=== PATIENT | female | born 1930 | race Caucasian/White ===

== ENCOUNTER 2017-06-15 17:05 | Emergency (ER) | payer MEDICARE ==
[2017-06-15 17:31] VITALS: BP 173/91
--- NOTE | 2017-06-15 17:37 | UC ---
Ear Complaint HPI - HPI Summary HPI Summary: Pt presents with b/l decreased hearing and ear fullness. She says that she has a hx of wax build up in her ears and gets them irrigated frequently. Denies fever, chills, sore throat, or recent illness. - History of Current Complaint Chief Complaint: UCEar Stated Complaint: EARS NEEDS FLUSHING Time Seen by Provider: 06/15/17 17:35 Hx Obtained From: Patient Onset/Duration: Gradual Onset Severity Currently: None Pain Intensity: 0 - Allergies/Home Medications Allergies/Adverse Reactions: Allergies Allergy/AdvReac Type Severity Reaction Status Date / Time captopril AdvReac Coughing Verified 06/15/17 17:23 Home Medications: Home Medications Apixaban* [Eliquis*] 5 mg PO BID 06/15/17 [History Confirmed 06/15/17] Atorvastatin* [Lipitor*] 10 mg PO DAILY 06/15/17 [History Confirmed 06/15/17] Losartan Potassium 100 mg PO DAILY 06/15/17 [History Confirmed 06/15/17] Spironolactone TAB* [Aldactone TAB*] 25 mg PO DAILY 06/15/17 [History Confirmed 06/15/17] amLODIPine TAB* [Norvasc 5 mg TAB*] 5 mg PO DAILY 06/15/17 [History Confirmed ] PMH/Surg Hx/FS Hx/Imm Hx Endocrine History: Dyslipidemia Cardiovascular History: Cardiac Disease, Hypertension, Atrial Fibrillation GI/ History: Gastroesophageal Reflux - Surgical History Surgical History: Yes Surgery Procedure, Year, and Place: appy, masectomy (Right) - Family History Known Family History: Positive: Cardiac Disease, Hypertension - Social History Occupation: Retired Lives: With Family Alcohol Use: None Substance Use Type: None Smoking Status (MU): Never Smoked Tobacco Review of Systems Constitutional: Negative Skin: Negative Eyes: Negative ENT: Ear Ache Respiratory: Negative Cardiovascular: Negative Gastrointestinal: Negative Neurovascular: Negative Musculoskeletal: Negative Neurological: Negative Psychological: Negative All Other Systems Reviewed And Are Negative: Yes Physical Exam - Summary Physical Exam Summary: GENERAL: NAD. WDWN. No pain distress. SKIN: No rashes, sores, ulcers, masses, lesions. HEENT: Head: AT/NC Eyes: EOM intact. Conjunctiva clear without inflammation or discharge. Ears: Hearing grossly normal. TMs occluded by cerumen b/l. Nose: Nasal mucosa pink and moist. NTTP maxillary and frontal sinus. Throat: Posterior oropharynx without exudates, erythema, or tonsillar enlargement. Uvula midline. NECK: Supple. Nontender. No lymphadenopathy. CHEST: CTAB. No r/r/w. No accessory muscle use. Breathing comfortably and in no distress. CV: Pulses intact. Brisk cap refill. NEURO: Alert. CN II-XII grossly intact. PSYCH: Age appropriate behavior. Triage Information Reviewed: Yes Vital Signs: Initial Vital Signs Temp 98.7 F 06/15/17 17:23 Pulse 66 06/15/17 17:23 Resp 20 06/15/17 17:23 BP 173/91 06/15/17 17:23 Pulse Ox 96 06/15/17 17:23 Ear Complaint Course/Dx - Course Course Of Treatment: Ear irrigation was successful. TMs intact and without erythema. Pt tolerated well. - Differential Dx/Diagnosis Provider Diagnoses: Cerumen disimpaction Discharge - Sign-Out/Discharge Documenting (check all that apply): Discharge - Discharge Plan Condition: Stable Disposition: HOME Patient Education Materials: Cerumen Impaction (ED) Referrals: Cj Cook MD [Primary Care Provider] - Additional Instructions: If you develop a fever, shortness of breath, chest pain, new or worsening symptoms - please call your PCP or go to the ED. - Billing Disposition and Condition Condition: STABLE Disposition: HOME
== END 2017-06-15 18:06 | disposition home or self-care (01) ==
LOC: UCCORT 17:05
DX: H61.20 Impacted cerumen, unspecified ear (principal); Z88.8 Allergy status to other drugs, medicaments and biological substances
CPT/HCPCS: 99203; G0463

== ENCOUNTER 2018-03-01 12:17 | Emergency (ER) | payer MEDICARE ==
[2018-03-01 14:22] VITALS: BP 154/71
--- NOTE | 2018-03-01 15:01 | UC ---
Skin Complaint HPI - HPI Summary HPI Summary: Patient has had pain on the right back of her head for the last 2 days it does not change with movement, it is shooting pain that causes occasional pain in the ear. patient is reaching up to scratch the back of head frequently. no fever. no injury - History of Current Complaint Chief Complaint: UCGeneralIllness Time Seen by Provider: 03/01/18 14:32 Stated Complaint: NECK PAIN Hx Obtained From: Patient ?: No Onset/Duration: Sudden Onset, Lasting Days Skin Exposure Onset/Duration: Days Ago Timing: Constant Onset Severity: Severe Current Severity: Severe Pain Intensity: 9 Location: Discrete - behind right ear Character: Redness, Raised Aggravating Factor(s): Nothing Alleviating Factor(s): Nothing Associated Signs & Symptoms: Positive: Rash - Allergy/Home Medications Allergies/Adverse Reactions: Allergies Allergy/AdvReac Type Severity Reaction Status Date / Time captopril AdvReac Coughing Verified 03/01/18 14:08 Home Medications: Home Medications Losartan TAB* [Cozaar TAB*] 100 mg DAILY 03/01/18 [History Confirmed 03/01/18] Metoprolol Tartrate TAB* [Lopressor TAB*] 1 tab BID 03/01/18 [History Confirmed 03/01/18] PMH/Surg Hx/FS Hx/Imm Hx Previously Healthy: Yes - Surgical History Surgical History: Yes Surgery Procedure, Year, and Place: appy, masectomy (Right) - Family History Known Family History: Positive: Cardiac Disease, Hypertension - Social History Alcohol Use: None Substance Use Type: None Smoking Status (MU): Never Smoked Tobacco Review of Systems All Other Systems Reviewed And Are Negative: Yes Constitutional: Positive: Negative Skin: Positive: Rash Eyes: Positive: Negative ENT: Positive: Ear Ache Respiratory: Positive: Negative Cardiovascular: Positive: Negative Gastrointestinal: Positive: Negative Genitourinary: Positive: Negative Motor: Positive: Negative Neurovascular: Positive: Negative Musculoskeletal: Positive: Negative Neurological: Positive: Headache Psychological: Positive: Negative Is Patient Immunocompromised?: No Physical Exam Triage Information Reviewed: Yes Appearance: Ill-Appearing, Pain Distress, Obese Vital Signs: Initial Vital Signs Temp 97.5 F 03/01/18 14:12 Pulse 63 03/01/18 14:12 Resp 18 03/01/18 14:12 BP 154/71 03/01/18 14:12 Pulse Ox 97 03/01/18 14:12 Vital Signs Reviewed: Yes Eye Exam: Normal ENT Exam: Normal ENT: Positive: Pharynx normal, TMs normal - no sign of lesions Dental Exam: Normal Neck exam: Normal Neck: Positive: Supple, Nontender, No Lymphadenopathy Respiratory Exam: Normal Respiratory: Positive: Chest non-tender, Lungs clear, Normal breath sounds Cardiovascular Exam: Normal Cardiovascular: Positive: RRR, No Murmur, Pulses Normal Abdominal Exam: Normal Abdomen Description: Positive: Nontender, No Organomegaly, Soft Bowel Sounds: Positive: Present Musculoskeletal Exam: Normal Musculoskeletal: Positive: Strength Intact, ROM Intact, No Edema, Other: Neurological Exam: Normal Neurological: Positive: Alert Psychological Exam: Normal Skin: Positive: Rashes - red raised areas of erythema up the right side of the head Course/Dx - Course Course Of Treatment: hx obtained, exam performed ,meds reviewed, treaed for shingles - Differential Diagnoses - Skin Complaint Differential Diagnoses: Abscess, Cellulitis, Contact Dermatitis, Urticaria, Varicella Zoster - Diagnoses Provider Diagnosis: Shingles outbreak Discharge - Sign-Out/Discharge Documenting (check all that apply): Patient Departure All imaging exams completed and their final reports reviewed: No Studies - Discharge Plan Condition: Stable Disposition: HOME Prescriptions: Hydrocodone/Acetaminophen [Ernest 5-325 Tablet] 1 each PO Q6H #16 tablet MDD 4 tab ValACYclovir (*) [Valtrex 1 GM(*)] 1 gm PO TID #21 tab Patient Education Materials: Shingles (ED) Referrals: Cj Cook MD [Primary Care Provider] - Additional Instructions: 1. Take the medication as prescribed. 2. Use the pain medication when tylneol and heat are not enough. 3. Follow up if your symtpoms become wrse, you develop sharp ear pain, increased hearing loss or fever. 4. try to keep hands away from area - Billing Disposition and Condition Condition: STABLE Disposition: Home - Attestation Statements Provider Attestation: Per institutional requirements, I have reviewed the chart, however, I was not consulted specifically or made aware of this patient by the midlevel provider. I did not personally evaluate, interact with , or disposition this patient.
== END 2018-03-01 15:06 | disposition home or self-care (01) ==
LOC: UCCORT 12:17
DX: B02.9 Zoster without complications (principal); Z88.8 Allergy status to other drugs, medicaments and biological substances
CPT/HCPCS: 99212; G0463

== ENCOUNTER 2018-08-19 07:21 | Emergency (ER) | payer MEDICARE ==
[2018-08-19 07:46] VITALS: BP 132/51
[2018-08-19] MEDS ORDERED: cefTRIAXone VIAL(*) 1,000 MG VIAL IM ONE (07:52)
[2018-08-19] MEDS ORDERED: Lidocaine 1%** 5 ML VIAL INJ ONE (07:57)
--- NOTE | 2018-08-19 08:13 | UC ---
Skin Complaint HPI - HPI Summary HPI Summary: right arm redness x 1 day woke up this morning with redness of her right arm extending for her shoulder down to her wrist hx of breast cancer with right mastectomy, hx of cellulitis of her right arm , + right arm pain, warm to touch feels weak and feverish - History of Current Complaint Chief Complaint: UCUpperExtremity Time Seen by Provider: 08/19/18 07:48 Stated Complaint: RIGHT ARM SKIN Hx Obtained From: Patient, Family/Industrial Paramedic Onset/Duration: Gradual Onset, Lasting Days - 1, Still Present Timing: Constant Onset Severity: Moderate Current Severity: Severe Pain Intensity: 6 Location: Discrete - right arm Character: Swelling, Pain, Redness, Painful Aggravating Factor(s): Touch Alleviating Factor(s): Nothing Associated Signs & Symptoms: Positive: Weakness, Fever, Chills, Tenderness. Negative: Nausea, Vomiting - Allergy/Home Medications Allergies/Adverse Reactions: Allergies Allergy/AdvReac Type Severity Reaction Status Date / Time captopril AdvReac Coughing Verified 08/19/18 07:35 PMH/Surg Hx/FS Hx/Imm Hx Endocrine History: Diabetes Cardiovascular History: Cardiac Disease, Hypertension, Atrial Fibrillation GI/ History: Gastroesophageal Reflux Neurological History: CVA Cancer History: Breast Cancer - Surgical History Surgical History: Yes Surgery Procedure, Year, and Place: appy, masectomy (Right) - Family History Known Family History: Positive: Cardiac Disease, Hypertension - Social History Alcohol Use: None Substance Use Type: None Smoking Status (MU): Never Smoked Tobacco Review of Systems All Other Systems Reviewed And Are Negative: Yes Constitutional: Positive: Fever, Chills, Fatigue Eyes: Positive: Negative ENT: Positive: Negative Respiratory: Positive: Negative Is Patient Immunocompromised?: No Physical Exam Triage Information Reviewed: Yes Appearance: Well-Appearing, No Pain Distress, Well-Nourished Vital Signs: Initial Vital Signs Temp 99.8 F 08/19/18 07:37 Pulse 91 08/19/18 07:37 Resp 24 08/19/18 07:37 BP 132/51 08/19/18 07:37 Pulse Ox 94 08/19/18 07:37 Vital Signs Reviewed: Yes Eye Exam: Normal Eyes: Positive: Conjunctiva Clear ENT: Positive: Normal ENT inspection, Hearing grossly normal, Pharynx normal Neck: Positive: Supple, Nontender, No Lymphadenopathy Respiratory: Positive: Chest non-tender, Lungs clear, Normal breath sounds Cardiovascular: Positive: RRR, No Murmur, Pulses Normal Skin: Positive: Other - right arm : + cellulitis , erythem extending for axilla to wrist, + tenderness, warm to touch Course/Dx - Diagnoses Provider Diagnosis: Cellulitis of right arm Discharge - Sign-Out/Discharge Documenting (check all that apply): Patient Departure All imaging exams completed and their final reports reviewed: No Studies - Discharge Plan Condition: Stable Disposition: HOME Prescriptions: Cephalexin CAP* [Keflex CAP*] 500 mg PO TID #30 cap Patient Education Materials: Cellulitis (DC) Referrals: Cj Cook MD [Primary Care Provider] - Additional Instructions: please go to the Emergency room if not seeing any improvements in 2 days sooner if getting worse with fever, chills , increase in redness of your arm - Billing Disposition and Condition Condition: STABLE Disposition: Home
== END 2018-08-19 08:37 | disposition home or self-care (01) ==
LOC: UCCORT 07:21
DX: L03.113 Cellulitis of right upper limb (principal); E11.9 Type 2 diabetes mellitus without complications; I10 Essential (primary) hypertension; Z86.73 Personal history of transient ischemic attack (TIA), and cerebral infarction without residual deficits; Z85.3 Personal history of malignant neoplasm of breast
CPT/HCPCS: 99212; G0463; J0696

== ENCOUNTER 2019-03-29 11:45 | Emergency (ER) | payer MEDICARE ==
[2019-03-29] MEDS ORDERED: Albuterol 2.5 MG/3 ML NEB.SOL* (0.083%) INH ONE (12:11)
--- NOTE | 2019-03-29 12:16 | UC ---
Respiratory Complaint HPI - HPI Summary HPI Summary: 6 days of wheezing and productive cough w/ fever, decr. energy. she felt better after using at home neb 2x. of note she did get flu shot this year. no recent travel. denies sick contacts. has had to sleep up right a couple of times. walking makes it worse. - History of Current Complaint Chief Complaint: UCRespiratory Stated Complaint: WHEEZING,CONGESTION,COUGH Time Seen by Provider: 03/29/19 12:10 Hx Obtained From: Patient Onset/Duration: Gradual Onset Pain Intensity: 0 Character: Cough: Productive Aggravating Factors: Recumbent Position Alleviating Factors: Bronchodilator, Upright Position Associated Signs And Symptoms: Positive: Fever, Wheezing, URI, Nasal Congestion. Negative: Dyspnea, Chills, Pleuritic Chest Pain, Hemoptysis, Dizziness, Calf Pain, Calf Swelling, Edema - Allergies/Home Medications Allergies/Adverse Reactions: Allergies Allergy/AdvReac Type Severity Reaction Status Date / Time captopril AdvReac Coughing Verified 03/29/19 12:05 Home Medications: Home Medications Calcium Carbonate [Calcium] 600 mg PO DAILY 03/29/19 [History Confirmed 03/29/19 ] Glucosam/Chondr/Collagn/Hyalur [Glucosamine & Chondroitin Cap] 1 each PO DAILY 03/29/19 [History Confirmed 03/29/19] Multivitamins/Minerals TAB* [Thera M Plus TAB*] 1 tab PO DAILY 03/29/19 [ History Confirmed 03/29/19] PMH/Surg Hx/FS Hx/Imm Hx Previously Healthy: No - chronically ill Cardiovascular History: Cardiac Disease, Hypertension, Congestive Heart Failure , Atrial Fibrillation Other Respiratory History: chronic lung issue but she is unclear of dx; has nebulizer at home. GI/ History: Gastroesophageal Reflux - Surgical History Surgical History: Yes Surgery Procedure, Year, and Place: appy, masectomy (Right) - Family History Known Family History: Positive: Cardiac Disease, Hypertension - Social History Alcohol Use: None Substance Use Type: None Smoking Status (MU): Never Smoked Tobacco Review of Systems All Other Systems Reviewed And Are Negative: Yes Constitutional: Positive: Fever, Fatigue. Negative: Chills Skin: Negative: Rash Eyes: Negative: Blurred Vision ENT: Positive: Sinus Congestion. Negative: Sore Throat, Ear Ache, Nasal Discharge Respiratory: Positive: Cough, Other - wheezing. Negative: Shortness Of Breath Cardiovascular: Negative: Palpitations, Chest Pain Gastrointestinal: Negative: Vomiting, Diarrhea, Nausea Genitourinary: Negative: Other - decreased urination Musculoskeletal: Negative: Myalgia Neurological: Negative: Headache, Weakness Physical Exam Triage Information Reviewed: Yes Appearance: Well-Appearing Vital Signs: Initial Vital Signs Temp 99.2 F 03/29/19 12:06 Pulse 57 03/29/19 12:06 Resp 42 03/29/19 12:06 BP 131/60 03/29/19 12:06 Pulse Ox 95 03/29/19 12:06 Neck: Positive: Supple, Nontender, No Lymphadenopathy Respiratory: Positive: No respiratory distress, No accessory muscle use, Wheezing - THIS RESOLVED AFTER NEB TX, Expiration, Other: - able to speak in comlete sentences without getting sob.. Negative: Crackles, Rhonchi, Stridor Cardiovascular: Positive: Pulses Normal. 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 Respiratory Course/Dx - Course Course Of Treatment: cough, sob, and wheezing x 6 days assoc. w/ fever . she did get flu shot this year. wheezing was significant on exam and we were able to give her a neb tx which improved her symptoms,and resp. rate. Her O2 stayed the same. We reviewed her O2 in the past and it was up around 97%. Initially; With tachypnea and O2 of 95 and comorbid conditions it was thought we could use levaquin for 5 days given new guidelines. But after review of the CXR and no improvement of O2, she should go to the Emergency Room. Offered ambulance but she has decided to let her daughter drive her directly there. on CXR there were some fibrotic changes but no consolidation or fluid back up. It was not thought this was CHF related at this point but again, its best she get worked up at ED for possibility of this as well. - Differential Dx/Diagnosis Differential Diagnosis/HQI/PQRI: Asthma, Bronchitis, CHF, Lower Resp Infection Provider Diagnosis: Pneumonia Discharge ED - Sign-Out/Discharge Documenting (check all that apply): Patient Departure All imaging exams completed and their final reports reviewed: Yes - Discharge Plan Condition: Stable Disposition: HOME-RECOMMEND TO ED Patient Education Materials: Shortness of Breath (ED) Referrals: Cj Cook MD [Primary Care Provider] - Additional Instructions: iF YOUR BREATHING IS THE SAME OR WORSE , YOU HAVE DECREASED URINATION, OR CHANGE IN MENTAL STATUS--PLEASE GO TO THE EMERGENCY ROOM. - Billing Disposition and Condition Condition: STABLE Disposition: Home-Recommend to ED
[2019-03-29 13:09] VITALS: BP 111/57
== END 2019-03-29 13:49 | disposition home health service (06) ==
LOC: UCCORT 11:45
DX: J18.9 Pneumonia, unspecified organism (principal); I10 Essential (primary) hypertension; J84.89 Other specified interstitial pulmonary diseases; I50.9 Heart failure, unspecified; Z88.8 Allergy status to other drugs, medicaments and biological substances
CPT/HCPCS: 71046; 99212; G0463